=== PATIENT | male | born 1965 | race Caucasian/White ===

== ENCOUNTER 2019-09-12 22:47 | Emergency (ER) | payer OTHER ==
[~2019-09-12] VITALS: Ht 172.7 cm; Wt 108.9 kg
[2019-09-12] MEDS ORDERED: Lisinopril-Hct1 EAC4 (23:19)
[2019-09-12] MEDS ORDERED: METF500 (23:19)
[2019-09-12] MEDS ORDERED: SERT100 (23:20)
[2019-09-12] MEDS ORDERED: ASPIR 8181 M1 (23:20)
[2019-09-12] MEDS ORDERED: OMEP20ER (23:20)
[2019-09-12] MEDS ORDERED: ZOCOR20 MG (23:20)
[2019-09-13 02:09] LABS: BASOPHILS ABSOLUTE AUTO 0.05 K/mm3 (0.00-0.23); BASOPHILS PERCENT AUTO 1 % (0-2); EOSINOPHILS ABSOLUTE AUTO 0.36 K/mm3 (0.00-0.68); EOSINOPHILS PERCENT AUTO 4 % (0-6); Hematocrit 44.3 % (37.0-53.0); Hemoglobin 14.2 g/dL (13.5-17.5); IMMATURE GRAN ABSOLUTE AUTO 0.01 K/mm3 (0.00-0.10); IMMATURE GRAN PERCENT AUTO 0 % (0-1); LYMPHOCYTES ABSOLUTE AUTO 3.11 K/mm3 (0.84-5.20); LYMPHOCYTES PERCENT AUTO 33 % (21-46); MONOCYTES ABSOLUTE AUTO 0.63 K/mm3 (0.16-1.47); MONOCYTES PERCENT AUTO 7 % (4-13); Mean Corpuscular HGB 29.7 pg (26.0-34.0); Mean Corpuscular HGB Conc 32.1 g/dL (31.5-36.5); Mean Corpuscular Volume 93 fL (80-100); Mean Platelet Volume 9.9 fL (9.1-12.4); NEUTROPHILS ABSOLUTE AUTO 5.16 K/mm3 (1.96-9.15); NEUTROPHILS PERCENT AUTO 55 % (41-73); Platelet Count 187 K/mm3 (150-400); RDW Coefficient Variation 12.2 % (11.7-14.2); RDW Standard Deviation 42.1 fL (35.1-46.3); Red Blood Cell Count 4.78 M/mm3 (4.30-5.90); White Blood Cell Count 9.32 K/mm3 (4.00-11.30)
[2019-09-13 02:26] LABS: Alanine Aminotransfer (ALT/SGP 46 U/L (12-78); Albumin, Blood 3.5 g/dL (3.4-5.0); Albumin/Globulin Ratio 0.9 (0.8-1.8); Alk Phos 74 U/L (50-136); Anion Gap 0 mmol/L (6-16); Aspartate Aminotrans (AST/SGOT 19 U/L (12-37); Bilirubin, Total 0.3 mg/dL (0.1-1.0); Blood Urea Nitrogen 17 mg/dL (8-24); Bun/Creatinine Ratio 15.5 (12.0-20.0); CO2, Blood 31 mmol/L (21-32); Calcium, Blood 8.1 mg/dL (8.5-10.1); Chloride, Blood 111 mmol/L (98-108); Globulin, Blood 3.9 g/dL (2.2-4.0); Glomerular Filtration Rate >60 (60-); Glucose, Blood 121 mg/dL (70-99); Potassium, Blood 3.5 mmol/L (3.5-5.5); Sodium, Blood 142 mmol/L (136-145); Total Protein, Blood 7.4 g/dL (6.4-8.2)
[2019-09-13] MEDS ORDERED: Bactrim Ds Tab1 EACH PO (05:34)
[2019-09-13] MEDS ORDERED: SULTRIDS PO (05:46)
== END 2019-09-13 05:52 | disposition home or self-care (01) ==
LOC: ER 22:47
PROVIDERS: Physician Assistant
DX: L02.811 Cutaneous abscess of head [any part, except face] (principal); L03.811 Cellulitis of head [any part, except face]; M54.2 Cervicalgia; E11.9 Type 2 diabetes mellitus without complications; I10 Essential (primary) hypertension; Z79.899 Other long term (current) drug therapy; Z79.84 Long term (current) use of oral hypoglycemic drugs
CPT/HCPCS: 36415; 72126; 80053; 85025; 90471; 90714; 96365; 96375; 99284-25; A9270-GY; J0690; J1885; Q9967